=== PATIENT | male | born 1975 | race Hispanic/Latino ===

== ENCOUNTER 2016-08-01 13:48 | Emergency (ER) | payer SELFPAY ==
[2016-08-01] MEDS ORDERED: PEPCID PO ONE (15:00)
[2016-08-01] MEDS ORDERED: ZOFRAN PO ONE (15:00)
[2016-08-01] MEDS ORDERED: TYLENOL PO ONE (15:02)
[2016-08-01 15:23] LABS: Basophils % (Auto) 0.8 % (0.0-1.8); Eosinophils % (Auto) 3.5 % (0.0-4.3); Hematocrit 47.5 % (35.5-45.6); Hemoglobin 15.6 gm/dl (11.8-15.2); Mean Corpuscular HGB Conc 33 % (32-34); Mean Corpuscular Hemoglobin 29 pg (28-32); Mean Corpuscular Volume 89 fl (84-94); Platelet Count 230 K/mm3 (140-440); Red Blood Count 5.36 M/mm3 (3.65-5.03); Red Cell Distribution Width 13.5 % (13.2-15.2)
[2016-08-01 15:38] LABS: Alanine Aminotransferase 80 units/L (7-56); Albumin 4.2 g/dL (3.9-5); Albumin/Globulin Ratio 1.3 %; Alkaline Phosphatase 71 units/L (35-129); Anion Gap 17 mmol/L; Blood Urea Nitrogen 13 mg/dL (9-20); Calcium 9.6 mg/dL (8.4-10.2); Carbon Dioxide 26 mmol/L (22-30); Chloride 104.8 mmol/L (98-107); Glucose 87 mg/dL (75-100); Lipase 35 units/L (13-60); Potassium 4.5 mmol/L (3.6-5.0); Sodium 143 mmol/L (137-145); Total Protein 7.4 g/dL (6.3-8.2)
[2016-08-01] MEDS ORDERED: ZOFRAN ODT PO ONE (16:16)
--- NOTE | 2016-08-01 16:38 | Emergency Department Report ---
Entered by NINI BARCENAS, acting as scribe for NATALIA VOSS PA. Chief Complaint: Abdominal Pain Stated Complaint: UPPER ABD PAIN Time Seen by Provider: 08/01/16 14:55 - HPI History of Present Illness: 41 y/o male with PMHx of diverticulitis and PSHx of appendectomy, presents to the ED c/o epigastric abdominal pain beginning 4 days ago and worsening 2 days ago. The abdominal pain is 8/10 severity and radiates to the right ribcage area. Associated symptom of back pain, nausea, vomiting (4 episodes of emesis since last night), and chills, but he denies diarrhea, constipation, and dysuria. 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 Prior to the onset of the symptoms the patient consumed some eggs , grits, and buttered toast. No other complaints. - ROS Review of Systems: ABD: positive for epigastric abdominal pain, nausea, vomiting. negative for diarrhea and constipation. : negative for dysuria. Constitutional: positive for chills all other systems reviewed and negative. - Exam Vital Signs: Vital Signs 08/01/16 14:06 Temperature 98.2 F Pulse Rate 84 Respiratory 20 Rate Blood Pressure 130/85 O2 Sat by Pulse 100 Oximetry Physical Exam: Constitutional: Non toxic appearing, NAD. Cardiovascular: Normal rate and rhythm with normal S1/S2 sounds. Respiratory: No respiratory distress. Lung sounds clear to auscultation bilaterally. Abdomen: Abdomen is non-distended, soft with tenderness to palpation of the epigastric area. Bowel sounds normal. MSE screening note: Focused history and physical exam performed. Due to findings the following was ordered: ED Medical Decision Making - Lab Data Result diagrams: 08/01/16 15:06 08/01/16 15:06 - Medical Decision Making Alert and oriented x3. labs, zofran, Tylenol and pepcid ordered. No acute distress, patient is stable. To be seen by a dog If labs are normal patient comes in by [facility] provider ED Disposition for MSE Condition: Stable This documentation as recorded by the scribe,NINI BARCENAS,accurately reflects the service I personally performed and the decisions made by SHANIKA orourke OYINLOLA A, PA.
[2016-08-01 19:05] LABS: Bilirubin,Urine NEG (Negative); Blood,Urine NEG (Negative); Ketones,Urine NEG (Negative); Leukocyte Esterase,Urine NEG (Negative); Mucus,Urine FEW /HPF; Nitrite,Urine NEG (Negative); Protein,Urine <15 mg/dL mg/dL (Negative); Urobilinogen,Urine < 2.0 mg/dL (<2.0)
[2016-08-01] MEDS ORDERED: MORPHINE IV ONE (20:51)
[2016-08-01] MEDS ORDERED: ZOFRAN IV ONE (20:51)
[2016-08-01] MEDS ORDERED: NACL 0.9% 1000 ML 1,000 ML IV ONE (20:51)
--- NOTE | 2016-08-01 20:54 | Emergency Department Report ---
ED Abdominal Pain HPI - General Chief Complaint: Abdominal Pain Stated Complaint: UPPER ABD PAIN Time Seen by Provider: 08/01/16 14:54 Source: patient Mode of arrival: Ambulatory Limitations: No Limitations - History of Present Illness Initial Comments: Pt is a 41 y/o male with PMHx of diverticulitis and PSHx of appendectomy, presents to the ED c/o epigastric abdominal pain beginning 4 days ago and worsening over the past 2 days ago. The abdominal pain is 8/10 severity and radiates to the right ribcage area. Associated symptom of back pain, nausea, vomiting (4 episodes of emesis since last night), and chills, but he denies diarrhea, constipation, and dysuria. Last BM was this morning. Pt has had an appendectomy in the past. 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 Prior to the onset of the symptoms the patient consumed some eggs, grits, and buttered toast. No other complaints. Severity scale (0 -10): 8 - Related Data Previous Rx's Medication Instructions Recorded Last Taken Type Famotidine [Pepcid] 20 mg PO BID #30 tablet 08/01/16 Unknown Rx HYDROcodone/APAP 5-325 [Barney 1 each PO Q4HR PRN #12 tablet 08/01/16 Unknown Rx 5/325] Ondansetron [Zofran ODT TAB] 8 mg PO Q8HR PRN #12 tab.rapdis 08/01/16 Unknown Rx Sucralfate [Carafate] 1 gm PO Q6HR PRN #150 udc 08/01/16 Unknown Rx Allergies Allergy/AdvReac Type Severity Reaction Status Date / Time dicyclomine HCl [From Bentyl] Allergy Anaphylaxis Verified 08/01/16 15:03 metoclopramide HCl Allergy Seizure Verified 08/01/16 15:03 [From Reglan] Sulfa (Sulfonamide Allergy Unknown Verified 08/01/16 15:03 Antibiotics) ED Review of Systems ROS: Stated complaint: UPPER ABD PAIN Other details as noted in HPI Comment: All other systems reviewed and negative ED Past Medical Hx - Past Medical History Previous Medical History?: Yes Additional medical history: diverticulitis - Surgical History Hx Appendectomy: Yes - Social History Smoking Status: Former Smoker Substance Use Type: Alcohol, Non Opiate Pain, Prescribed - Medications Home Medications: Home Medications Medication Instructions Recorded Confirmed Last Taken Type Famotidine [Pepcid] 20 mg PO BID #30 tablet 08/01/16 Unknown Rx HYDROcodone/APAP 5-325 [Barney 1 each PO Q4HR PRN #12 tablet 08/01/16 Unknown Rx 5/325] Ondansetron [Zofran ODT TAB] 8 mg PO Q8HR PRN #12 tab.rapdis 08/01/16 Unknown Rx Sucralfate [Carafate] 1 gm PO Q6HR PRN #150 udc 08/01/16 Unknown Rx ED Physical Exam - General Limitations: No Limitations General appearance: alert, in no apparent distress - Head Head exam: Present: atraumatic, normocephalic - Eye Eye exam: Present: normal appearance - ENT ENT exam: Present: mucous membranes moist - Neck Neck exam: Present: normal inspection - Respiratory Respiratory exam: Present: normal lung sounds bilaterally. Absent: respiratory distress - Cardiovascular Cardiovascular Exam: Present: regular rate, normal rhythm. Absent: systolic murmur, diastolic murmur, rubs, gallop - GI/Abdominal GI/Abdominal exam: Present: soft, tenderness (epigastrium and RUQ, (+)Ceylon sign), guarding, normal bowel sounds. Absent: distended, rebound - Rectal Rectal exam: Present: deferred - Extremities Exam Extremities exam: Present: normal inspection - Back Exam Back exam: Present: normal inspection - Neurological Exam Neurological exam: Present: alert, oriented X3 - Psychiatric Psychiatric exam: Present: normal affect, normal mood - Skin Skin exam: Present: warm, dry, intact, normal color. Absent: rash ED Course Vital Signs 08/01/16 08/01/16 08/01/16 14:06 20:41 23:22 Temperature 98.2 F 98 F Pulse Rate 84 88 Respiratory 20 18 18 Rate Blood Pressure 130/85 Blood Pressure 130/88 [Left] O2 Sat by Pulse 100 100 Oximetry ED Medical Decision Making - Lab Data Result diagrams: 08/01/16 15:06 08/01/16 15:06 - Radiology Data Radiology results: report reviewed RUQ US: (-) Acute cholecystitis, (+)fatty liver (+)gallstone vs polyp Critical care attestation.: If time is entered above; I have spent that time in minutes in the direct care of this critically ill patient, excluding procedure time. ED Disposition Clinical Impression: Abdominal pain Disposition: DC-01 TO HOME OR SELFCARE Is pt being admited?: No Condition: Stable Instructions: Abdominal Pain (ED) Prescriptions: Famotidine [Pepcid] 20 mg PO BID #30 tablet HYDROcodone/APAP 5-325 [Barney 5/325] 1 each PO Q4HR PRN #12 tablet PRN Reason: Pain Ondansetron [Zofran ODT TAB] 8 mg PO Q8HR PRN #12 tab.rapdis PRN Reason: Nausea Sucralfate [Carafate] 1 gm PO Q6HR PRN #150 udc PRN Reason: Pain Referrals: PRIMARY CARE, [Primary Care Provider] - 3-5 Days Forms: Work/School Release Form(ED)
--- NOTE | 2016-08-01 21:55 | Ultrasound Report ---
FINAL REPORT EXAM: US ABDOMEN LIMITED HISTORY: r/o cholecystitis with right upper quadrant abdominal pain TECHNIQUE: Right upper quadrant ultrasound PRIORS: None. FINDINGS: Examination of the gallbladder demonstrates 2.5 mm echogenic non shadowing adherent focus along 1 wall. This is consistent with either small polyp or adherent gallstone. There is no evidence for distention, wall thickening, or pericholecystic fluid. No sonographic Mancera's sign is elicited. Common bile duct is normal in diameter measuring 2.1 mm. The liver is increased but homogeneous in echogenicity without focal abnormality or intrahepatic biliary dilatation. 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 The deeper portions of the liver difficult to visualize due to poor through transmission. The pancreas is not visualized due to bowel gas. The abdominal aorta is normal caliber. Only the midportion is visualized measuring 1.1 cm in diameter. The right kidney is normal in size without calculi or hydronephrosis. Right kidney measures 9.6 cm in length. IMPRESSION: 1. Small echogenic adherent focus along the gallbladder wall consistent with either an adherent gallstone or small polyp. 2. Increased echogenicity of the liver consistent with fatty metamorphosis.
[2016-08-01] MEDS ORDERED: CARAFATE PO ONE (22:23)
[2016-08-01 23:22] VITALS: BP 130/88
== END 2016-08-01 23:50 | disposition home or self-care (01) ==
LOC: ED 13:48
DX: R10.13 Epigastric pain (principal); Z87.891 Personal history of nicotine dependence
CPT/HCPCS: 36415; 76705; 80053; 81001; 83690; 85025; 96361; 96374; 99284; J2270; J7030; Q0162